=== PATIENT | female | born 1980 | race African-American/Black ===

== ENCOUNTER 2019-04-27 18:37 | Emergency (ER) | payer OTHER, MEDICAID ==
[~2019-04-27] VITALS: Ht 165.1 cm; Wt 68.0 kg
[2019-04-27 19:13] VITALS: Ht 165.1 cm; Wt 68.0 kg
[2019-04-27 20:41] LABS: microscopic required? NO
[2019-04-27 20:53] LABS: urine erythrocyte NEGATIVE (NEGATIVE)
[2019-04-27 22:56] VITALS: BP 102/65
== END 2019-04-27 22:58 | disposition home or self-care (01) ==
LOC: ED 18:37
PROVIDERS: Emergency Medicine
DX: M54.6 Pain in thoracic spine (principal); M54.2 Cervicalgia; R51 Headache; S40.212A Abrasion of left shoulder, initial encounter; N89.8 Other specified noninflammatory disorders of vagina; V49.49XA Driver injured in collision with other motor vehicles in traffic accident, initial encounter; Y93.I9 Activity, other involving external motion; Y92.488 Other paved roadways as the place of occurrence of the external cause; Y99.8 Other external cause status
CPT/HCPCS: 87491; 87591; J0696; J1885